=== PATIENT | female | born 1995 | race Caucasian/White ===

== ENCOUNTER 2021-12-26 07:31 | Emergency (ER) | payer BC, OTHER ==
[~2021-12-26] VITALS: Ht 165.1 cm; Wt 63.8 kg
[2021-12-26 08:03] VITALS: BP 130/80
[2021-12-26] MEDS ORDERED: METH4PAK PO (08:35)
== END 2021-12-26 08:46 | disposition home or self-care (01) ==
LOC: ER 07:31
DX: B08.4 Enteroviral vesicular stomatitis with exanthem (principal)

== ENCOUNTER 2022-01-18 18:49 | Emergency (ER) | payer BC ==
[~2022-01-18 18:49] MED LIST: METH4PAK PO
== END 2022-01-18 20:06 | disposition left against medical advice (07) ==
LOC: ER 18:49
DX: N93.9 Abnormal uterine and vaginal bleeding, unspecified (principal); Z53.21 Procedure and treatment not carried out due to patient leaving prior to being seen by health care provider

== ENCOUNTER 2022-01-20 09:32 | Emergency (ER) | payer BC, MEDICAID ==
[~2022-01-20] VITALS: Ht 165.1 cm; Wt 66.0 kg
[2022-01-20 10:51] LABS: Basophils # (auto) 0 10 ^3/uL (0-0.2); Basophils % (auto) 0.9 % (0.0-2.0); Eosinophils # (auto) 0.1 10 ^3/uL (0-0.8); Eosinophils % (auto) 2.6 % (0.0-7.0); Hematocrit 39.5 % (36.0-46.0); Hemoglobin 13.7 g/dL (12.2-16.2); Lymphocytes # (auto) 1.9 10 ^3/uL (0.4-5.4); Lymphocytes % (auto) 49.9 % (10.0-50.0); Mean Corpuscular Hemoglobin 29.4 pg (28.0-32.0); Mean Corpuscular Hgb Conc. 34.7 g/dL (32.0-36.0); Mean Corpuscular Volume 84.7 fL (80.0-100.0); Monocytes # (auto) 0.6 10 ^3/uL (0-1.3); Monocytes % (auto) 14.6 % (0.0-12.0); Neutrophils # (auto) 1.2 10 ^3/uL (1.6-8.6); Nucleated Red Blood Cells % 0.2 %; Red Blood Cells 4.66 10^6/uL (4.0-5.20); Red Cell Distribution Width 12.8 % (11.8-14.3); White Blood Cell 3.8 10^3/uL (4.4-10.8)
[2022-01-20 11:17] LABS: Urine Bacteria FEW /hpf (None Seen); Urine Blood 2+ /uL (Negative); Urine Mucus FEW (None Seen); Urine Specific Gravity 1.022 (1.001-1.035); Urine WBC 34 /hpf (0 - 5)
[2022-01-20 11:47] LABS: Albumin 3.7 g/dL (3.4-5.0); Potassium 3.9 mmol/L (3.5-5.1)
[2022-01-20 11:49] LABS: Bilirubin, Total 0.5 mg/dL (0.2-1.0); Total Protein 7.9 g/dL (6.4-8.2)
[2022-01-20] MEDS ORDERED: RHO (D) IMMUNE GLOBULIN 300 MCG INJ IM ONE (14:30)
[2022-01-20] MEDS ORDERED: CEFP200T15 PO (15:53)
[2022-01-20 21:00] VITALS: BP 106/72
== END 2022-01-20 21:05 | disposition home or self-care (01) ==
LOC: ER 09:32
DX: O20.8 Other hemorrhage in early pregnancy (principal); O23.11 Infections of bladder in pregnancy, first trimester; Z79.899 Other long term (current) drug therapy; Z3A.01 Less than 8 weeks gestation of pregnancy
CPT/HCPCS: 36415; 76801; 76817; 80053; 81001; 84702; 85025; 86850; 86900; 86901; 90384; 96372